=== PATIENT | male | born 1960 | race Caucasian/White ===

== ENCOUNTER 2022-08-13 16:07 | Emergency (ER) | payer SELFPAY ==
[~2022-08-13] VITALS: Ht 167.6 cm; Wt 111.1 kg
[~2022-08-13 16:07] MED LIST: ? ANTIDEPRESSANT; AMOX500 PO; FLUO20 PO; HYDACE5 PO
[2022-08-13] MEDS ORDERED: ATOR40TA PO (16:21)
[2022-08-13] MEDS ORDERED: METFORMIN HCL500 M2 PO (16:21)
[2022-08-13] MEDS ORDERED: AMOCLA875 PO (18:03)
== END 2022-08-13 18:07 | disposition home or self-care (01) ==
LOC: ER 16:07
DX: S61.011A Laceration without foreign body of right thumb without damage to nail, initial encounter (principal); E11.9 Type 2 diabetes mellitus without complications; Z79.899 Other long term (current) drug therapy; Z79.84 Long term (current) use of oral hypoglycemic drugs; W27.0XXA Contact with workbench tool, initial encounter
CPT/HCPCS: 12031; 73140; 90471; 90714; 99283-25

== ENCOUNTER 2022-08-27 16:37 | Emergency (ER) | payer SELFPAY ==
[~2022-08-27] VITALS: Ht 167.6 cm; Wt 108.9 kg
[~2022-08-27 16:37] MED LIST changes: +AMOCLA875 PO; +ATOR40TA PO; +METFORMIN HCL500 M2 PO
[2022-08-27] MEDS ORDERED: SULTRIDS PO (21:55)
== END 2022-08-27 22:14 | disposition home or self-care (01) ==
LOC: ER 16:37
DX: S68.0 Traumatic metacarpophalangeal amputation of thumb (principal); W27.0XXD Contact with workbench tool, subsequent encounter; E11.9 Type 2 diabetes mellitus without complications; E78.00 Pure hypercholesterolemia, unspecified; Z79.84 Long term (current) use of oral hypoglycemic drugs; Z79.899 Other long term (current) drug therapy
CPT/HCPCS: 73140; 99283-25